=== PATIENT | male | born 1955 | race Caucasian/White ===

== ENCOUNTER 2020-03-17 00:34 | Outpatient (CLI) | payer MEDICARE, OTHER, SELFPAY ==
[2020-03-17 18:58] LABS: SARS-CoV-2 RNA PCR Negative
== END 2020-03-17 00:35 | disposition home or self-care (01) ==
LOC: ANHCOVIDDT 00:34
PROVIDERS: Visit Provider Urology
DX: Z01.818 Encounter for other preprocedural examination (principal); Z20.828 Contact with and (suspected) exposure to other viral communicable diseases
CPT/HCPCS: 87635; C9803; U0003

== ENCOUNTER 2020-03-20 01:58 | Day surgery (SDC) | payer MEDICARE, OTHER, SELFPAY ==
[2020-03-15 09:40] VITALS: BMI 22.7
--- NOTE | 2020-03-19 11:01 | P.PNAN_ITS ---
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 Patient Data Age: 65 Gender: M Height: 1.78 m Weight: 72 kg Allergies Allergy/AdvReac Type Severity Reaction Status Date / Time lisinopril AdvReac Cough Verified 03/15/20 09:22 Home Medications Medication Instructions Recorded Confirmed Type arginine oxoglurate 1,000 mg PO DAILY 03/15/20 03/15/20 History [L-Arginine(alpha-ketoglutarat)] aspirin [Aspir-81] 81 mg PO DAILY 03/15/20 03/15/20 History atorvastatin 40 mg PO HS 03/15/20 03/15/20 History cholecalciferol (vitamin D3) 50 mcg PO DAILY 03/15/20 03/15/20 History [Vitamin D3] cyanocobalamin (vitamin B-12) 5,000 mcg PO 2XW 03/15/20 03/15/20 History [Vitamin B-12] dulaglutide [Trulicity] 1.5 mg SUBCUT WEEKLY 03/15/20 03/15/20 History empagliflozin [Jardiance] 10 mg PO QPM 03/15/20 03/15/20 History evolocumab [Repatha SureClick] 140 mg SUBCUT USEASDIRECTD 03/15/20 03/15/20 History folic acid 1 mg PO DAILY 03/15/20 03/15/20 History gabapentin 100 mg PO HS 03/15/20 03/15/20 History isosorbide mononitrate 30 mg PO HS 03/15/20 03/15/20 History metoprolol succinate [Toprol XL] 25 mg PO QPM 03/15/20 03/15/20 History [id number] 1 tablet PO DAILY 03/15/20 03/15/20 History [Shawn Multivitamin For Men] nitroglycerin 0.4 mg SUBLINGUAL Q5-10M 03/15/20 03/15/20 History ranolazine [Ranexa] 500 mg PO BID 03/15/20 03/15/20 History sitagliptin [Januvia] 100 mg PO QPM 03/15/20 03/15/20 History Other Studies: stress echo 03/2018: no ischemia echo 2018 ef 62% Patient hx anesthesia problems: none Family hx anesthesia problems: none PMFSH Past Medical History Medical History (Updated 03/19/20 @ 11:03 by Gera Zabala MD) Angina pectoris CAD (coronary artery disease) Diabetes HTN (hypertension) Hypercholesterolemia Migraine Osteoarthritis Peripheral neuropathy Surgical History Surgical History (Updated 03/19/20 @ 11:03 by Gera Zabala MD) History of coronary artery stent placement Social History Social History Smoking status: Never smoker Alcohol intake: never Substance use: never Living arrangements: with family Spiritual care concerns: No Anes - Eval Final PreProcedure Day of Procedure 03/19/20 11:01 Patient weight: normal Heart: regular rate and rhythm Lungs: clear to auscultation and normal air movement Airway: Mallampati scale class II Neurological: alert and oriented Last oral intake: >/= 8 hours ASA classification: III Emergent: no Anesthetic plan: proceed Anesthesia type and monitoring: general LMA Informed Consent: The patient's anesthetic plan and its attendant risks and pan efits were discussed with the patient/family/POA. Questions were solicited and answers provided to the satisfaction of the patient/family/POA.
[2020-03-20] VITALS (19 sets, daily range): BP systolic 104–133; BP diastolic 69–89; PULSE 64–78; RESP 12–20; TEMP 36–36.7; O2SAT 94–100; BMI 23.1; BMI 23.9
[2020-03-20] MEDS: LACTATED RINGERS 1,000 ML 30 ML IV CONT (11:36)
[2020-03-20 11:41] LABS: Glucose Point of Care 124 (65-105)
--- NOTE | 2020-03-20 11:53 | WPDHPUPDATE1 ---
History and Physical Update Update Date/Time: 03/20/20 11:53 History and Physical has been reviewed, including an updated exam of the patient. There are NO changes in the patient's condition. Risks, benefits, and alternatives have been discussed and questions answered. Patient agrees to proceed with procedure.
[2020-03-20] MEDS: LIDOCAINE HCL 2% GEL UROJET 10 ML PKG MUCOUS MEM (13:14)
[2020-03-20] MEDS: ceFAZolin 2 GM/D5W 50 ML 2 GM/50 ML BAG IVPB (13:18)
--- NOTE | 2020-03-20 14:10 | PM.PROC ---
Procedure Note - Detailed Date of procedure: 03/20/20 Pre-op diagnosis: Stricture Of Urethral Meatus Post-op diagnosis: same (Fossa navicularis stricture. Irregular prostatic tissue with fusion near the apex) Procedure performed: Urethral dilatation up to 24 [place]. Transurethral resection of residual prostatic tissue Description of procedure: Patient is taken to the operative suite and correctly identified. Once anesthesia was obtained he was placed in dorsal lithotomy position prepped draped in usual sterile fashion. We could not even place a 19 [place] scope in. We then used some male sounds to dilate the urethra up to 24 [place]. I did require the use of a rigid ureteral scope to make sure that we were in the appropriate location with dilatation of the meatal area. Once this was accomplished a 19 [place] cystoscope was then inserted into the meatus. There are no other urethral strictures noted. External sphincter was intact. Prostate has some mild residual tissue at the apex. There also was a band fusing the 2 lobes together near the apical tissue. Once we were able to get past this area was noted that he also had some irregularity of the prostatic tissue primarily on the right lobe. The bladder itself had no evidence of tumors or irregularities. We exchanged the scope out for a 24 [place] resectoscope sheath. We then resected the prostatic tissue and sent it for analysis. Hemostasis was achieved using the rollerball. 2% viscous lidocaine was inserted into the urethra and a [address] [place] with continuous bladder irrigation. 15 cc of sterile water was placed in the balloon. He was taken recovery room stable condition. Will see how he does postoperatively whether he will need to be admitted for CBI our can go home with a catheter and have that removed on Thursday. Anesthesia: GLMA Surgeon: Goyo Baptiste MD Drains: Yes Packing: No Pathology: yes Complications: No immediate complications Condition: stable Disposition: PACU
[2020-03-20] MEDS: fentaNYL CITRATE INJ (*CRX) 100 MCG/2 ML VIAL 25 MCG IV PUSH ×4 (14:29→14:40)
[2020-03-20 14:33] LABS: Glucose Point of Care 109 (65-105)
[2020-03-20] MEDS: HYDROmorphone HCL INJ (*CRX) 1 MG/ML SYR 0.25 MG IV PUSH ×8 (14:43→15:25)
[2020-03-20] MEDS: ONDANSETRON INJ 4 MG/2 ML VIAL IV PUSH (14:58)
--- NOTE | 2020-03-20 16:35 | ADMGEN ---
This patient, Esvin Lua, was admitted to Medical Room 253-. Patient/family oriented to hospital policies and general routines including ID bracelet, bed and alarms, visiting hours, pain management, procedures, bathroom and other care routines, personal items, smoking policy, room service/diet, and visiting hours. Information on how to activate the Rapid Response Team has been discussed. Patient/Family are encouraged to report perceived risks to care and to ask questions if they do not understand what they are told or what they should do.
[2020-03-20] MEDS: DOCUSATE SODIUM 100 MG CAPSULE PO (17:26)
[2020-03-20] MEDS: METOPROLOL SUCCINATE EXT REL 25 MG TABCR PO (17:26)
[2020-03-20] MEDS: DEXTROSE 5%/LACTATED RINGERS 1,000 ML 125 ML IV CONT (17:33)
[2020-03-20] MEDS: GABAPENTIN 100 MG CAPSULE PO (23:11)
[2020-03-20] MEDS: RANOLAZINE 500 MG TAB.ER.12H PO (23:11)
[2020-03-20] MEDS: ISOSORBIDE MONONITRATE 30 MG TAB.ER.24H PO (23:11)
[2020-03-20] MEDS: ATORVASTATIN 40 MG TABLET PO (23:14)
--- NOTE | 2020-03-20 23:18 | PC.NURSE ---
Nighttime medications given at 2100 but documentation did not file. Medications rescanned at 2300.
[2020-03-21 01:44] VITALS: BP 108/67; PULSE 72; RESP 18; TEMP 36.1; O2SAT 98
[2020-03-21] MEDS: DEXTROSE 5%/LACTATED RINGERS 1,000 ML 125 ML IV CONT (02:11)
[2020-03-21 05:29] VITALS: BP 95/55; PULSE 80; RESP 16; TEMP 36.5; O2SAT 98
[2020-03-21] MEDS: HYDROcodone/acetaminophen (*CRX) 5-325 MG TABLET 1 TAB PO (06:40)
[2020-03-21] MEDS: RANOLAZINE 500 MG TAB.ER.12H PO (08:00)
[2020-03-21] MEDS: DOCUSATE SODIUM 100 MG CAPSULE PO ×2 (08:00→17:01)
[2020-03-21 08:03] LABS: Glucose Point of Care 160 (65-105)
--- NOTE | 2020-03-21 09:04 | WPDUROPN2 ---
Progress Note: A&P Assessment and Plan (1) Urethral stricture: Code(s): N35.919 - Unspecified urethral stricture, male, unspecified site Status: Acute Assessment and Plan: Will plan to keep [place] in post discharge and remove next week in the office. CBI is back on a slow drip. Wean to off when clear, will monitor throughout the day. Subjective Subjective Date/Time Seen: 03/21/20 09:04 POD #1 Cystoscopy with Removal of Stricture of Urethral Meatus Patient doing relatively well, managing pain, c/o burning pain in the urethra. Gross Hematuria present when CBI was off, it is back on a slow drip. Review of Systems Cardiovascular: Cardiovascular: Denies chest pain Respiratory: Respiratory: Reports no additional respiratory complaints Gastrointestinal: Gastrointestinal: Reports abdominal pain, Denies nausea and Denies vomiting Genitourinary: Genitourinary: Reports hematuria, Denies dysuria and Denies flank pain Exam Resp: Effort & Inspection: normal respiratory effort Cardio: Rate: regular rate GI: GI Palp: Yes abdominal tenderness, Yes Soft to palpation and Yes Tenderness to palpation present (GI) (suprapubic) : General: Yes no CVA tenderness Extrem: General: no edema Objective Data Vital Signs Vital Signs: Vital Signs - 24 hr 03/20/20 11:41 03/20/20 14:14 03/20/20 14:25 Temperature 97.1 F L 97.0 F L Pulse Rate 74 64 73 Respiratory Rate 14 14 14 Blood Pressure 104/75 106/80 109/80 Pulse Oximetry 99 100 100 03/20/20 14:40 03/20/20 14:55 03/20/20 15:10 Temperature Pulse Rate 70 65 71 Respiratory Rate 12 12 12 Blood Pressure 113/85 117/88 121/89 Pulse Oximetry 100 100 100 03/20/20 15:25 03/20/20 15:40 03/20/20 15:55 Temperature Pulse Rate 66 65 66 Respiratory Rate 12 12 12 Blood Pressure 127/79 126/73 114/77 Pulse Oximetry 98 98 96 03/20/20 16:10 03/20/20 16:25 03/20/20 16:35 Temperature 96.8 F L Pulse Rate 70 68 72 Respiratory Rate 12 12 18 Blood Pressure 123/72 117/78 Pulse Oximetry 94 98 98 03/20/20 16:47 03/20/20 17:00 03/20/20 17:26 Temperature 97.3 F L 97.1 F L Pulse Rate 78 69 69 Respiratory Rate 20 18 Blood Pressure 130/74 117/74 Pulse Oximetry 95 98 03/20/20 17:30 03/20/20 18:28 03/20/20 20:00 Temperature 97.2 F L 97.0 F L Pulse Rate 72 70 Respiratory Rate 18 18 Blood Pressure 110/79 133/70 Pulse Oximetry 98 97 98 03/20/20 22:02 03/21/20 01:44 03/21/20 05:29 Temperature 98.0 F 97.0 F L 97.7 F Pulse Rate 66 72 80 Respiratory Rate 16 18 16 Blood Pressure 115/69 108/67 95/55 L Pulse Oximetry 98 98 98 Intake/Output Intake/Output: Intake & Output 03/18/20 03/19/20 03/20/20 03/21/20 23:59 23:59 23:59 23:59 Intake Total 2400 1820 Output Total 3650 2800 Balance -1250 -980 Meds/Results Medications: Active Medications Generic Name Dose Route Start Last Admin Trade Name Freq PRN Reason Stop Dose Admin Hydrocodone Bitart/Acetaminophen 1 tab 03/20/20 16:32 03/21/20 06:40 Hydrocodone/Acetaminophen (*Crx) 5-325 Mg Tablet PO 1 tab Q4H PRN Administration Pain Rated 1-6 Atorvastatin Calcium 40 mg 03/20/20 21:00 03/20/20 23:14 Atorvastatin 40 Mg Tablet PO 40 mg HS ANN Administration Cephalexin HCl 500 mg 03/21/20 13:00 Cephalexin 500 Mg Capsule PO QID ANN Docusate Sodium 100 mg 03/20/20 17:00 03/21/20 08:00 Docusate Sodium 100 Mg Capsule PO 100 mg BID ANN Administration Gabapentin 100 mg 03/20/20 21:00 03/20/20 23:11 Gabapentin 100 Mg Capsule PO 100 mg HS ANN Administration Hyoscyamine 0.125 mg 03/20/20 16:32 Hyoscyamine Sulfate 0.125 Mg Tablet SUBLINGUAL Q6H PRN Bladder Spasm Isosorbide Mononitrate 30 mg 03/20/20 21:00 03/20/20 23:11 Isosorbide Mononitrate 30 Mg Tab.Er.24h PO 30 mg HS ANN Administration Metoprolol Succinate 25 mg 03/20/20 18:00 03/20/20 17:26 Metoprolol Succinate Ext Rel 25 Mg Tabcr PO 25
[2020-03-21 10:08] VITALS: BP 114/68; PULSE 64; RESP 18; TEMP 36.6; O2SAT 99
--- NOTE | 2020-03-21 11:12 | WPDANESPN ---
Anes - Prog Note Post-Op Date/Time: 03/21/20 11:12 Cardiovascular status: normal Respiratory status: normal Airway patency: baseline Mental status: baseline Post-Op hydration status: normal Vital Signs: Last Vital Signs Temp 36.6 C 03/21/20 10:08 Pulse 64 03/21/20 10:08 Resp 18 03/21/20 10:08 BP 114/68 03/21/20 10:08 Pulse Ox 99 03/21/20 10:08 Pain Score (VAS): 0 I/O: Intake & Output 03/20/20 03/21/20 03/21/20 23:59 07:59 15:59 Intake Total 1650 1640 180 Output Total 2550 2800 Balance -900 -1160 180 03/20/20 03/20/20 03/21/20 11:39 14:31 08:00 POC Capillary Glucose 124 H 109 160 H Post-procedural complaints: none Patient Feedback: Patient satisfied with anesthetic care.
[2020-03-21] MEDS: CEPHALEXIN 500 MG CAPSULE PO ×2 (12:13→17:00)
[2020-03-21] MEDS: HYOSCYAMINE SULFATE 0.125 MG TABLET SUBLINGUAL (12:19)
[2020-03-21 14:17] VITALS: BP 105/63; PULSE 64; RESP 18; TEMP 36.4; O2SAT 98
[2020-03-21 17:00] VITALS: PULSE 64
[2020-03-21] MEDS: METOPROLOL SUCCINATE EXT REL 25 MG TABCR PO (17:00)
== END 2020-03-21 18:05 | disposition home or self-care (01) ==
LOC: ANHSURGERY 14:16 → ANH2MED 16:54
PROVIDERS: PCP Family Medicine; Visit Provider Urology
PROC: (CPT 52352; principal; 2020-03-20 13:00)
DX: N40.1 Benign prostatic hyperplasia with lower urinary tract symptoms (principal); R39.13 Splitting of urinary stream; N35.911 Unspecified urethral stricture, male, meatal; R97.20 Elevated prostate specific antigen [PSA]; I25.10 Atherosclerotic heart disease of native coronary artery without angina pectoris; I10 Essential (primary) hypertension; E78.00 Pure hypercholesterolemia, unspecified; G43.909 Migraine, unspecified, not intractable, without status migrainosus; M19.90 Unspecified osteoarthritis, unspecified site; E11.42 Type 2 diabetes mellitus with diabetic polyneuropathy; Z95.5 Presence of coronary angioplasty implant and graft; Z79.82 Long term (current) use of aspirin
CPT/HCPCS: 52601; 88305; A9270; C1757; C1769; J0690; J1100; J1170; J2405; J2704; J3010; J7120; J7121